=== PATIENT | male | born 1995 | race Two or more races ===

== ENCOUNTER 2020-05-30 16:17 | Emergency (ER) | payer MEDICAID ==
[2020-05-30 16:26] VITALS: BP 146/93
--- NOTE | 2020-05-30 16:35 | ED Physician Documentation ---
PD HPI MALE - Stated complaint Stated Complaint: MALE - Chief complaint Chief Complaint: General - History obtained from History obtained from: Patient - History of Present Illness Timing - onset: How many days ago (2) Timing - duration: Days (he says he nicked himself with a polo blade while trimming hair around the genitalia 2 days ago. Minimal bleeding. Now today h aving development of redness with small weeping vesicles in the area. Denies other skin sores.) Timing - details: Gradual onset Associated symptoms: Genital sore / lesion. No: Dysuria, Testiclar pain, Scrotal swelling PD HPI MALE CONTRIB FACTORS: Sexually active Similar symptoms before: Has not had sx before (denies history of STDs nor herpes.) Review of Systems Constitutional: denies: Fever, Chills Nose: denies: Rhinorrhea / runny nose, Congestion Throat: denies: Sore throat Respiratory: denies: Cough : denies: Dysuria, Hematuria, Discharge Skin: reports: Lesions (just localized to area that was recent injured.) PD PAST MEDICAL HISTORY - Past Medical History Past Medical History: No - Present Medications Home Medications: Ambulatory Orders Medication Instructions Recorded Confirmed Mupirocin Calcium [Mupirocin] 1 applic TP TID #15 cream..g. 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 No localized fluid collection. The tip of the penis is normal.) - Derm Derm: Normal color, Warm and dry Results - Vitals Vitals: Vital Signs - 24 hr 05/30/20 16:22 Temperature 36.5 C Heart Rate 100 Respiratory 16 Rate Blood Pressure 146/93 H O2 Saturation 97 Oxygen O2 Source Room air PD MEDICAL DECISION MAKING - ED course Complexity details: considered differential (shaft of the penis has a small patch of redness with superficial vesicles. Consider herpetic, but no history of it, and is at site of small abrasion/lac 2 days ago, so presume superficial staph. ), d/w patient Departure - Departure Disposition: 01 Home, Self Care Clinical Impression: Cellulitis of shaft of penis Condition: Stable Record reviewed to determine appropriate education?: Yes Instructions: ED Infec Skin Cellulitis Prescriptions: Sulfamethox/Trimeth 800/160 [Bactrim Ds 800/160] 1 each PO BID #10 tablet Mupirocin Calcium [Mupirocin] 1 applic TP TID #15 cream..g. Comments: Clean the area with soap and water 2-3 times daily and apply mupirocin topical antibiotic ointment. Also Bactrim oral antibiotic twice daily for 5 days. This should clear up and heal over the next several days. Recheck if not better in that timeframe. Discharge Date/Time: 05/30/20 16:56
[2020-05-30] MEDS ORDERED: MUPIROCIN 2% OINT 1 GM TOP STA (16:44)
[2020-05-30] MEDS ORDERED: SULFAMETH/TRIMETH DS 800/160 MG TABLET PO STA (16:44)
== END 2020-05-30 16:56 | disposition home or self-care (01) ==
LOC: ED 16:17
DX: N48.22 Cellulitis of corpus cavernosum and penis (principal); W26.8XXA Contact with other sharp object(s), not elsewhere classified, initial encounter; Y93.E8 Activity, other personal hygiene
CPT/HCPCS: 99282; 99283; A9270

== ENCOUNTER 2022-10-05 23:42 | Emergency (ER) | payer MEDICAID ==
[2022-10-05 23:56] VITALS: BP 139/91
[2022-10-06] MEDS: lidocaine 1% 20 ML MDV SUBQ ONE (00:07)
--- NOTE | 2022-10-06 00:32 | ED Physician Documentation ---
PD HPI UPPER EXT INJURY - Stated complaint Stated Complaint: FINGER LAC - Chief complaint Chief Complaint: Laceration - History obtained from History obtained from: Patient - Additonal information Additional information: Patient presenting for evaluation of a laceration sustained to his right ring finger that occurred around 5 PM. 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 He states he was able to get the bleeding to stop after a few hours. He does not take a blood thinner. He states he has received a tetanus shot within the last 5 years as he knows he received 1 while he was incarcerated.He denies injuries elsewhere. Review of Systems Constitutional: denies: Fever Cardiac: denies: Chest pain / pressure Respiratory: denies: Dyspnea GI: denies: Abdominal Pain Skin: reports: Laceration (s) Neurologic: denies: Head injury PD PAST MEDICAL HISTORY - Past Medical History Past Medical History: Yes Respiratory: Asthma Other Past Medical History: HSV-2 - Past Surgical History Past Surgical History: No - Present Medications Home Medications: Ambulatory Orders Medication Instructions Recorded Confirmed Acyclovir 400 mg PO DAILY PRN 10/06/22 10/06/22 Albuterol Sulf [Ventolin Hfa 1 - 2 puffs INH Q4HR PRN 10/06/22 10/06/22 Inhaler] - Allergies Allergies/Adverse Reactions: Allergies Allergy/AdvReac Type Severity Reaction Status Date / Time No Known Drug Allergies Allergy Verified 05/30/20 16:21 - Social History Does the pt smoke?: No Smoking Status: Former smoker Does the pt drink ETOH?: No Does the pt have substance abuse?: No - Immunizations Immunizations are current?: Yes - POLST Patient has POLST: No PD ED PE NORMAL - General General: Alert and oriented X 3, No acute distress, Well developed/nourished - HEENT HEENT: Atraumatic - Neck Neck: Supple, no meningeal sign - Respiratory Respiratory: No respiratory distress - Derm Derm: Warm and dry - Extremities Extremities: Other (1 cm Laceration to distal portion of right ring finger, no nailbed involvement, normal range of motion at all joints; Brisk cap refill) - Neuro Neuro: No motor deficit, No sensory deficit Results - Vitals Vitals: Vital Signs - 24 hr 10/05/22 23:53 Temperature 36.8 C Heart Rate 105 H Respiratory 16 Rate Blood Pressure 139/91 H O2 Saturation 98 Oxygen O2 Source Room air Procedures - Laceration (location) R ring Length in cm: 1 Wound type: Linear, Clean Neurovascular status: Sensory intact, Motor intact, Vascular intact Tendon involvement: Tendon intact Anesthesia: Lidocaine 1% Wound preparation: Hibiclens, Irrigated copiously NS Skin layer closure: Size #-0 - enter number (4), Sutures - enter # (3) Other: Patient tolerated well, No complications, Neurovascular intact, Dressing applied, Tetanus UTD PD Medical Decision Making - ED course ED course: Patient presenting for evaluation of laceration to his right ring finger. Tendon is intact and no signs of neurovascular injury.Discussed options for treatment and the patient consents to suture repair as the wound is gaping and will interfere with his day-to-day. Laceration was sutured and a dressing was applied. His tetanus is up-to-date. Patient is aware of wound care instructions, need to return for suture removal and advised on concerning symptoms to return sooner for. Departure - Departure Disposition: 01 Home, Self Care Clinical Impression: Laceration of right ring finger Condition: Stable Instructions: ED Laceration Ext Sutr Stap Tape Comments: You have a cut to your Right ring finger that was closed with 3 stitches. The stitches should stay in for approximately 1 week. You can return to the emergency department or to a walk-in clinic on October 13 to have them removed. In the meanwhile please make sure to keep the wound clean and dry to prevent any infection. Return to the ER sooner with any concerning symptoms. Forms: Activity restrictions Discharge Date/Time: 10/06/22 00:46
== END 2022-10-06 00:46 | disposition home or self-care (01) ==
LOC: ED 23:42
DX: S61.214A Laceration without foreign body of right ring finger without damage to nail, initial encounter (principal); W26.9XXA Contact with unspecified sharp object(s), initial encounter; Y99.0 Civilian activity done for income or pay; Z87.891 Personal history of nicotine dependence
CPT/HCPCS: 12001; 99282